=== PATIENT | female | born 1995 | race Caucasian/White ===

== ENCOUNTER 2019-07-21 18:56 | Emergency (ER) | payer OTHER ==
[~2019-07-21] VITALS: Ht 160 cm; Wt 125.0 kg
[~2019-07-21 18:56] MED LIST: ONDA4TAB10 PO
[2019-07-21 19:06] VITALS: BP 144/96
--- NOTE | 2019-07-21 19:34 | NUR ---
JOI RN: PT IN A C-COLLAR
== END 2019-07-21 20:27 ==
LOC: ED 20:21
DX: S16.1XXA Strain of muscle, fascia and tendon at neck level, initial encounter (principal); S39.012A Strain of muscle, fascia and tendon of lower back, initial encounter; S29.012A Strain of muscle and tendon of back wall of thorax, initial encounter; R51 Headache; V89.2XXA Person injured in unspecified motor-vehicle accident, traffic, initial encounter; Y93.I9 Activity, other involving external motion; Y92.488 Other paved roadways as the place of occurrence of the external cause; Y99.8 Other external cause status
CPT/HCPCS: 70450; 72125; 99284